=== PATIENT | male | born 1990 | race American Indian/Alaskan Native ===

== ENCOUNTER 2019-06-17 16:42 | Emergency (ER) | payer SELFPAY ==
[2019-06-17] MEDS ORDERED: Sodium Chloride 0.9% 10 ML Syringe FLUSH PRN (17:00)
[2019-06-17] MEDS ORDERED: MVI, Adult with Vitamin K 10 ML, Thiamine 100 MG, Folic Acid 1 MG in Lactated Ringers 1... IV ONE ×4 (17:01)
[2019-06-17] MEDS ORDERED: Ondansetron 4 MG/2 ML SDV IV ONE (17:01)
[2019-06-17] MEDS ORDERED: Pantoprazole 40 MG Vial IVPUSH ONE (17:02)
[2019-06-17 17:14] VITALS: BP 188/101
[2019-06-17 17:33] LABS: ANION GAP 13.1; CHLORIDE,CL 100 mmol/L (101-111); SODIUM,NA 136 mmol/L (135-145)
[2019-06-17] MEDS ORDERED: Azithromycin 250 MG Tab PO ONE (17:46)
[2019-06-17] MEDS ORDERED: Phenazopyridine 95 MG Tab PO ONE (17:47)
--- NOTE | 2019-06-17 17:58 | EDM.PDOC ---
Scribed by Charline Mg 06/17/19 7613 for Laurel Hughes MD ED HPI GENERAL MEDICAL PROBLEM - General Chief Complaint: Genitourinary Problem Stated Complaint: URINATING BLOOD PER PT Time Seen by Provider: 06/17/19 16:53 Source of Information: Reports: Patient, RN, RN Notes Reviewed History Limitations: Reports: No Limitations - History of Present Illness INITIAL COMMENTS - FREE TEXT/NARRATIVE: Patient presents to ER with complaint of "peeing blood" that started this morning. He drank some water and it went away, but then returned. He has dysuria. He did take Ibuprofen this afternoon. Patient admits that he is a heavy drinker and drinks daily. He also admitted to meth and marijuana use. He has been nausea and vomiting for the past 1 or 2 days. He had a couple flecks o blood in his vomitus at least one time. He feels a little shaky. He feels dehydrated and very dry in the mouth. Onset: Gradual Duration: Getting Worse Location: Reports: Generalized Quality: Reports: Ache Severity: Moderate Improves with: Reports: None Worsens with: Reports: None Associated Symptoms: Reports: No Other Symptoms Penis Pain Score (Numeric/FACES): 7 - Related Data Allergies Allergy/AdvReac Type Severity Reaction Status Date / Time No Known Allergies Allergy Verified 06/17/19 16:54 Past Medical History Psychiatric History: Reports: Addiction Social & Family History - Family History Family Medical History: Noncontributory - Living Situation & Occupation Living situation: Reports: with Family Occupation: Unemployed ED ROS GENERAL - Review of Systems Review Of Systems: ROS reveals no pertinent complaints other than HPI. ED EXAM, RENAL/ - Physical Exam Exam: See Below Exam Limited By: No Limitations General Appearance: Alert, WD/WN, No Apparent Distress, Obese Ears: Normal External Exam Nose: Normal Inspection, Normal Mucosa, No Blood Throat/Mouth: Normal Lips, Normal Oropharynx, Normal Voice, No Airway Compromise , Other (Dry oral mucus membranes) Head: Atraumatic, Normocephalic Neck: Normal Inspection, Supple, Non-Tender, Full Range of Motion Respiratory/Chest: No Respiratory Distress, Lungs Clear, Normal Breath Sounds, No Accessory Muscle Use, Chest Non-Tender Cardiovascular: Normal Peripheral Pulses, Regular Rate, Rhythm, No Edema, No Gallop, No JVD, No Murmur, No Rub GI/Abdominal: Normal Bowel Sounds, Soft, No Distention, Tender (mild tenderness at RUQ and epigastric region). No: Guarding, Rigid, Rebound (Male) Exam: Deferred Rectal (Males) Exam: Deferred Back Exam: Normal Inspection Extremities: Normal Inspection, Normal Range of Motion, Non-Tender, Normal Capillary Refill, No Pedal Edema Neurological: Alert, Oriented, CN II-XII Intact, Normal Cognition, Normal Gait, No Motor/Sensory Deficits Psychiatric: Normal Affect, Normal Mood Skin Exam: Warm, Dry, Intact, Normal Color, No Rash Course - Vital Signs Last Recorded V/S: Last Vital Signs Temp 98.3 F 06/17/19 16:56 Pulse 78 06/17/19 16:56 Resp 18 06/17/19 16:56 BP 188/101 H 06/17/19 16:56 Pulse Ox 97 06/17/19 16:56 - Orders/Labs/Meds Orders: Active Orders 24 hr Category Date Time Status Peripheral IV Care [RC] . DIRECTED Care 06/17/19 17:01 Active Abdomen Pelvis wo Cont [CT] Urgent Exams 06/17/19 17:15 Taken CHLAMYDIA AND GONORRHEA BY [facility] Routine Lab 06/17/19 16:46 Received MVI, Adult with Vitamin K [Infuvite Adult] 10 ml Med 06/17/19 17:01 Active Thiamine [Vitamin B-1] 100 mg Folic Acid 1 mg Lactated Ringers [Ringers, Lactated] 1,000 ml IV .BOLUS Sodium Chloride 0.9% [Saline Flush] Med 06/17/19 17:00 Active 10 ml FLUSH ASDIRECTED PRN cefTRIAXone [Rocephin] 2,000 mg Med 06/17/19 17:45 Ordered Sodium Chloride 0.9% [Normal Saline] 100 ml IV ONETIME Peripheral IV Insertion Adult [OM.PC] Stat Oth 06/17/19 17:00 Ordered Medication Orders Multivitamins/Minerals 10 ml/Thiamine HCl 100 mg/ Folic Acid 1 mg/ Lactated Ringer's 1,011.2 mls @ 999 mls/hr IV .BOLUS ONE Stop: 06/17/19 18:01 Last Admin: 06/17/19 17:19 Dose: 999 mls/hr Ceftriaxone Sodium 2,000 mg/ (Sodium Chloride) 100 mls @ 200 mls/hr IV ONETIME ONE Stop: 06/17/19 18:14 Sodium Chloride (Saline Flush) 10 ml FLUSH ASDIRECTED PRN PRN Reason: Keep Vein Open Last Admin: 06/17/19 17:07 Dose: 10 ml Labs: Laboratory Tests 06/17/19 06/17/19 06/17/19 Range/Units 16:46 16:46 17:05 WBC 9.4 (5.0-10.0) 10^3/uL RBC 5.70 (4.6-6.2) 10^6/uL Hgb 16.8 (14.0-18.0) g/dL Hct 49.1 (40.0-54.0) % MCV 86.1 (80-100) fL MCH 29.5 (27.0-34.0) pg MCHC 34.2 (33.0-35.0) g/dL Plt Count 213 (150-450) 10^3/uL Neut % (Auto) 72.3 (42.2-75.2) % Lymph % (Auto) 16.2 L (20.5-50.1) % Nance % (Auto) 10.2 H (2-8) % Eos % (Auto) 1.0 (1.0-3.0) % Baso % (Auto) 0.3 (0.0-1.0) % Sodium (135-145) mmol/L Potassium (3.6-5.0) mmol/L Chloride (101-111) mmol/L Carbon Dioxide (21.0-31.0) mmol/L Anion Gap BUN (7-18) mg/dL Creatinine (0.6-1.3) mg/dL Est Cr Clr Drug Dosing mL/min Estimated GFR (MDRD) BUN/Creatinine Ratio Glucose (74-105) mg/dL Calcium (8.4-10.2) mg/dl Total Bilirubin (0.2-1.0) mg/dL AST (10-42) IU/L ALT (10-60) IU/L Alkaline Phosphatase (42-121) IU/L Total Protein (6.7-8.2) g/dl Albumin (3.2-5.5) g/dl Globulin Albumin/Globulin Ratio Amylase (28-100) U/L Lipase (22-51) U/L Urine Color Red (YELLOW) Urine Appearance Cloudy (CLEAR) Urine pH 6.0 (5.0-9.0) Ur Specific Hammond 1.020 (1.005-1.030) Urine Protein 30 H (NEGATIVE) Urine Glucose (UA) Negative (NEGATIVE) Urine Ketones Negative (NEGATIVE) Urine Occult Blood Large H (NEGATIVE) Urine Nitrite Negative (NEGATIVE) Urine Bilirubin Negative (NEGATIVE) Urine Urobilinogen 0.2 (0.2-1.0) mg/dL Ur Leukocyte Esterase Negative (NEGATIVE) Urine RBC >100 H /HPF Urine WBC 0-5 (0-5/HPF) /HPF Ur Epithelial Cells Occasional (NOT SEEN) /HPF Urine Bacteria Occasional (0-FEW/HPF) /HPF Urine Mucus Occasional (NOT SEEN) /LPF Urine Opiates Screen Negative (NEGATIVE) Ur Oxycodone Screen Negative (NEGATIVE) Urine Methadone Screen Negative (NEGATIVE) Ur Barbiturates Screen Negative (NEGATIVE) U Tricyclic Antidepress Negative (NEGATIVE) Ur Phencyclidine Scrn Negative (NEGATIVE) Ur Amphetamine Screen Positive H (NEGATIVE) U Methamphetamines Scrn Positive H (NEGATIVE) Urine MDMA Screen Negative (NEGATIVE) U Benzodiazepines Scrn Negative (NEGATIVE) Urine Cocaine Screen Negative (NEGATIVE) U Marijuana (THC) Screen Positive H (NEGATIVE) Ethyl Alcohol mg/dL 06/17/19 Range/Units 17:05 WBC (5.0-10.0) 10^3/uL RBC (4.6-6.2) 10^6/uL Hgb (14.0-18.0) g/dL Hct (40.0-54.0) % MCV (80-100) fL MCH (27.0-34.0) pg MCHC (33.0-35.0) g/dL Plt Count (150-450) 10^3/uL Neut % (Auto) (42.2-75.2) % Lymph % (Auto) (20.5-50.1) % Nance % (Auto) (2-8) % Eos % (Auto) (1.0-3.0) % Baso % (Auto) (0.0-1.0) % Sodium 136 (135-145) mmol/L Potassium 4.1 (3.6-5.0) mmol/L Chloride 100 L (101-111) mmol/L Carbon Dioxide 27.0 (21.0-31.0) mmol/L Anion Gap 13.1 BUN 15 (7-18) mg/dL Creatinine 0.9 (0.6-1.3) mg/dL Est Cr Clr Drug Dosing 123.92 mL/min Estimated GFR (MDRD) > 60 BUN/Creatinine Ratio 16.66 Glucose 110 H (74-105) mg/dL Calcium 9.0 (8.4-10.2) mg/dl Total Bilirubin 1.5 H (0.2-1.0) mg/dL AST 44 H (10-42) IU/L ALT 73 H (10-60) IU/L Alkaline Phosphatase 54 (42-121) IU/L Total Protein 8.1 (6.7-8.2) g/dl Albumin 4.7 (3.2-5.5) g/dl Globulin 3.4 Albumin/Globulin Ratio 1.38 Amylase 20 L (28-100) U/L Lipase 25 (22-51) U/L Urine Color (YELLOW) Urine Appearance (CLEAR) Urine pH (5.0-9.0) Ur Specific Hammond (1.005-1.030) Urine Protein (NEGATIVE) Urine Glucose (UA) (NEGATIVE) Urine Ketones (NEGATIVE) Urine Occult Blood (NEGATIVE) Urine Nitrite (NEGATIVE) Urine Bilirubin (NEGATIVE) Urine Urobilinogen (0.2-1.0) mg/dL Ur Leukocyte Esterase (NEGATIVE) Urine RBC /HPF Urine WBC (0-5/HPF) /HPF Ur Epithelial Cells (NOT SEEN) /HPF Urine Bacteria (0-FEW/HPF) /HPF Urine Mucus (NOT SEEN) /LPF Urine Opiates Screen (NEGATIVE) Ur Oxycodone Screen (NEGATIVE) Urine Methadone Screen (NEGATIVE) Ur Barbiturates Screen (NEGATIVE) U Tricyclic Antidepress (NEGATIVE) Ur Phencyclidine Scrn (NEGATIVE) Ur Amphetamine Screen (NEGATIVE) U Methamphetamines Scrn (NEGATIVE) Urine MDMA Screen (NEGATIVE) U Benzodiazepines Scrn (NEGATIVE) Urine Cocaine Screen (NEGATIVE) U Marijuana (THC) Screen (NEGATIVE) Ethyl Alcohol 5 mg/dL Meds: Medications Generic Name Dose Route Start Last Admin Trade Name Freq PRN Reason Stop Dose Admin Multivitamins/Minerals 10 ml/ 1,011.2 mls @ 999 mls/hr 06/17/19 17:01 17:19 Thiamine HCl 100 mg/ Folic IV 06/17/19 18:01 999 mls/hr Acid 1 mg/ Lactated Ringer's .BOLUS ONE Administration Ceftriaxone Sodium 2,000 mg/ 100 mls @ 200 mls/hr 06/17/19 17:45 Sodium Chloride IV 06/17/19 18:14 ONETIME ONE Sodium Chloride 10 ml 06/17/19 17:00 06/17/19 17:07 Saline Flush FLUSH 10 ml ASDIRECTED PRN Administration Keep Vein Open Discontinued Medications Generic Name Dose Route Start Last Admin Trade Name Freq PRN Reason Stop Dose Admin Azithromycin 1,000 mg 06/17/19 17:46 Zithromax PO 06/17/19 17:47 ONETIME ONE Ondansetron HCl 4 mg 06/17/19 17:01 06/17/19 17:19 Zofran IV 06/17/19 17:02 4 mg ONETIME ONE Administration Pantoprazole Sodium 40 mg 06/17/19 17:02 06/17/19 17:19 Protonix Iv IVPUSH 06/17/19 17:03 40 mg ONETIME ONE Administration Phenazopyridine HCl 190 mg 06/17/19 17:47 Urinary Pain Relief PO 06/17/19 17:48 ONETIME ONE - Radiology Interpretation Free Text/Narrative:: [facility] Final Radiology Report Call: [phone] assistance Online chat: [email or web address] Name: CATHY KLINE Age: 29Years M Date: 06/17/2019 SSN: -- : [id number] Study: CT ABDOMEN/PELVIS WO Requesting Physician: LAUREL HUGHES Images: [id number] Addl Studies: Provided Clinical History: Contrast: Without Contrast Medium: Contrast Amount: Contrast Method: Page 1 of 2 EXAM: CT Abdomen and Pelvis Without Contrast EXAM DATE/TIME: 06/17/2019 5:29 PM CLINICAL HISTORY: 29 years old, male; Abdominal pain; Other: Hematuria, right abdomen/flank pain; Prior surgery; Surgery date: 6+ months; Surgery type: Cholecystectomy TECHNIQUE: Imaging protocol: Computed tomography of the abdomen and pelvis without contrast. Radiation optimization: All CT scans at this facility use at least one of these dose optimization techniques: automated exposure control; mA and/or kV adjustment per patient size (includes targeted exams where dose is matched to clinical indication); or iterative reconstruction. COMPARISON: No relevant prior studies available. FINDINGS: Liver: Normal. No mass. Gallbladder and bile ducts: Gallbladder is surgically absent. Pancreas: Normal. No ductal dilation. Spleen: Normal. No splenomegaly. Adrenals: Normal. No mass. Kidneys and ureters: Normal. No hydronephrosis. Stomach and bowel: Unremarkable. No obstruction. No mucosal thickening. Appendix: No evidence of appendicitis. Intraperitoneal space: Normal. No free air. No significant fluid collection. Vasculature: Unremarkable. No abdominal aortic aneurysm. CATHY KLINE | Final Radiology Report CONFIDENTIALITY STATEMENT This report is intended only for use by the referring physician, and only in accordance with law. If you received this in error, call [phone]. Page 2 of 2 Lymph nodes: Unremarkable. No enlarged lymph nodes. Bladder: Unremarkable as visualized. Reproductive: Unremarkable as visualized. Bones/joints: Unremarkable. No acute fracture. Soft tissues: Linear calcification in the center of the penis measuring 10 x 2 mm. IMPRESSION: 1. No nephrolithiasis. 2. Nonspecific calcification base of penis. Calcification in the penile urethra not excluded. Thank you for allowing us to participate in the care of your patient. Dictated and Authenticated by: Juaquin Chawla MD 06/17/2019 5:49 PM Central Time ([place] & [place]) Departure - Departure Time of Disposition: 19:00 Disposition: Home, Self-Care 01 Condition: Good Clinical Impression: Hematuria syndrome, Urethral calculus, Methamphetamine abuse, Alcohol abuse - Discharge Information *PRESCRIPTION DRUG MONITORING PROGRAM REVIEWED*: Not Applicable *COPY OF PRESCRIPTION DRUG MONITORING REPORT IN PATIENT THUY: Not Applicable Instructions: Hematuria, Adult, Stimulant Use Disorder-Methamphetamines, Alcohol Use Disorder Forms: ED Department Discharge Additional Instructions: Rx: Cipro 500mg Rx: Pyridium 200mg Drink plenty of water. Do not drink alcohol and stop using meth. Follow up at your primary clinic this week for urine recheck. - My Orders Last 24 Hours: My Active Orders 06/17/19 16:46 CHLAMYDIA AND GONORRHEA BY [facility] Routine 06/17/19 17:00 Sodium Chloride 0.9% [Saline Flush] 10 ml FLUSH ASDIRECTED PRN Peripheral IV Insertion Adult [OM.PC] Stat 06/17/19 17:01 Peripheral IV Care [RC] . DIRECTED MVI, Adult with Vitamin K [Infuvite Adult] 10 ml Thiamine [Vitamin B-1] 100 mg Folic Acid 1 mg Lactated Ringers [Ringers, Lactated] 1,000 ml IV .BOLUS 06/17/19 17:15 Abdomen Pelvis wo Cont [CT] Urgent 06/17/19 17:45 cefTRIAXone [Rocephin] 2,000 mg Sodium Chloride 0.9% [Normal Saline] 100 ml IV ONETIME - Assessment/Plan Last 24 Hours: My Active Orders 06/17/19 16:46 CHLAMYDIA AND GONORRHEA BY TMA Routine 06/17/19 17:00 Sodium Chloride 0.9% [Saline Flush] 10 ml FLUSH ASDIRECTED PRN Peripheral IV Insertion Adult [OM.PC] Stat 06/17/19 17:01 Peripheral IV Care [RC] . DIRECTED MVI, Adult with Vitamin K [Infuvite Adult] 10 ml Thiamine [Vitamin B-1] 100 mg Folic Acid 1 mg Lactated Ringers [Ringers, Lactated] 1,000 ml IV .BOLUS 06/17/19 17:15 Abdomen Pelvis wo Cont [CT] Urgent 06/17/19 17:45 cefTRIAXone [Rocephin] 2,000 mg Sodium Chloride 0.9% [Normal Saline] 100 ml IV ONETIME I have read and agree with the documentation that has been completed regarding this visit. By signing this record, I attest that the documentation was completed in my physical presence and is an accurate record of the encounter.
== END 2019-06-17 18:32 | disposition home or self-care (01) ==
LOC: DL.ED 16:42
DX: N21.1 Calculus in urethra (principal); F15.10 Other stimulant abuse, uncomplicated; F10.10 Alcohol abuse, uncomplicated; Y90.0 Blood alcohol level of less than 20 mg/100 ml
CPT/HCPCS: 36415; 74176; 80053; 80305; 81001; 82150; 83690; 85025; 87491; 87591; 96365; 96368; 96375; 99285; A9270; C9113; G0480; J0696; J2405; J3411; J7050; J7120; J3490

== ENCOUNTER 2021-03-17 01:12 | Emergency (ER) | payer MEDICAID, OTHER ==
[2021-03-17 01:57] LABS: ANION GAP 13.9 mEq/L (7-13); CHLORIDE,CL 102 mmol/L (98-107); SODIUM,NA 140 mmol/L (136-145)
[2021-03-17] MEDS ORDERED: Iopamidol 612 MG/ML 100 ML Bottle IVPUSH ONE (03:16)
[2021-03-17] MEDS ORDERED: Famotidine 20 MG/2 ML SDV IVPUSH ONE (03:25)
[2021-03-17] MEDS ORDERED: Famotidine 20 MG/2 ML SDV ONE (03:46)
--- NOTE | 2021-03-17 04:17 | CT ---
PROCEDURE INFORMATION: Exam: CT Abdomen And Pelvis With Contrast Exam date and time: 03/17/2021 2:53 AM Age: 30 years old Clinical indication: Abdominal pain; Periumbilical; Prior surgery; Surgery date: 6+ months; Surgery type: Gallbladder removed in 2013 TECHNIQUE: Imaging protocol: Computed tomography of the abdomen and pelvis with contrast. Radiation optimization: All CT scans at this facility use at least one of these dose optimization techniques: automated exposure control; mA and/or kV adjustment per patient size (includes targeted exams where dose is matched to clinical indication); or iterative reconstruction. Contrast material: ISOVUE 300; Contrast volume: 100 ml; Contrast route: INTRAVENOUS (IV); COMPARISON: CT Abdomen Pelvis wo Cont 06/17/2019 5:29 PM FINDINGS: Lungs: The lung bases are clear. No effusion Liver: There is fatty infiltration of the liver. Gallbladder and bile ducts: There has been a cholecystectomy. Pancreas: Normal. No ductal dilation. Spleen: Normal. No splenomegaly. Adrenal glands: Normal. No mass. Kidneys and ureters: There is a subcentimeter low-attenuation lesions/lesions, of the left kidney which are too small to accurately characterize by CT. Stomach and bowel: Diverticulosis without diverticulitis. Appendix: No evidence of appendicitis. Intraperitoneal space: Unremarkable. No free air. No significant fluid collection. Vasculature: Unremarkable. No abdominal aortic aneurysm. Lymph nodes: Unremarkable. No enlarged lymph nodes. Urinary bladder: There is urinary bladder wall thickening with pericystic fat stranding. Reproductive: Unremarkable as visualized. Bones/joints: Unremarkable. No acute fracture. Soft tissues: Unremarkable. IMPRESSION: 1. Findings concerning for acute cystitis. 2. Fatty infiltration of the liver. 3. Diverticulosis without diverticulitis. COMMENTS: Consistent with the [employer]'s Incidental Findings Committee white paper (J Am Quyen Radiol 2018): Any incidental renal lesion less than 1 cm or classified as too small to characterize, or any incidental cystic renal lesion characterized as simple-appearing, is likely benign. No follow-up imaging is recommended for these lesions per consensus recommendations based on imaging criteria.
--- NOTE | 2021-03-17 04:20 | EDM.PDOC ---
ED HPI GENERAL MEDICAL PROBLEM - General Chief Complaint: Abdominal Pain Stated Complaint: STOMACH CHEST PAINS Time Seen by Provider: 03/17/21 01:40 Source of Information: Reports: Patient, RN History Limitations: Reports: No Limitations - History of Present Illness INITIAL COMMENTS - FREE TEXT/NARRATIVE: ED with c/o upper abdominal pain since 9pm . Vomited x 1. Pizza for supper. Normal BM this padmini. No fever. Reports pain similar to gallbladder problems. Admits ETOH 2-3 times per week. Cannibas, denied other drug use. Middle Abdomen Pain Score (Numeric/FACES): 8 - Related Data Allergies Allergy/AdvReac Type Severity Reaction Status Date / Time No Known Allergies Allergy Verified 03/17/21 01:35 Home Meds: Home Meds . [No Known Home Meds] 03/17/21 [History] Past Medical History - Past Health History Medical/Surgical History: Denies Medical/Surgical History Psychiatric History: Reports: Addiction - Past Surgical History GI Surgical History: Reports: Cholecystectomy Social & Family History - Family History Family Medical History: No Pertinent Family History - Tobacco Use Tobacco Use Status *Q: Never Tobacco User - Caffeine Use Caffeine Use: Reports: Tea - Recreational Drug Use Recreational Drug Use: Yes Recreational Drug Type: Reports: Marijuana/Hashish - Living Situation & Occupation Living situation: Reports: with Family Occupation: Unemployed ED ROS GENERAL - Review of Systems Review Of Systems: Comprehensive ROS is negative, except as noted in HPI. ED EXAM, GI/ABD - Physical Exam Exam: See Below Exam Limited By: No Limitations General Appearance: Alert, Mild Distress Eyes: Bilateral: EOMI Head: Atraumatic, Normocephalic Neck: Normal Inspection Respiratory/Chest: No Respiratory Distress, Lungs Clear, Normal Breath Sounds Cardiovascular: Normal Peripheral Pulses, Regular Rate, Rhythm GI/Abdominal Exam: Normal Bowel Sounds, Soft, Tender (epigastric, LUQ). No: Distended, Guarding, Rigid, Rebound Back Exam: Full Range of Motion Extremities: Normal Inspection Neurological: Alert, Oriented, Normal Cognition Skin Exam: Warm, Dry, Intact, Normal Color Course - Vital Signs Last Recorded V/S: Last Vital Signs Temp 97.7 F 03/17/21 01:31 Pulse 70 03/17/21 02:17 Resp 18 03/17/21 02:17 BP 153/80 H 06/02/21 02:17 Pulse Ox 100 03/17/21 02:17 - Orders/Labs/Meds Orders: Active Orders 24 hr Category Date Time Status EKG 12 Lead [EKG Documentation Completion] [RC] URGENT Care 03/17/21 01:13 Active Abdomen Pelvis w Cont [CT] Urgent Exams 03/17/21 02:07 Taken CULTURE URINE [RM] Stat Lab 03/17/21 01:50 Received Labs: Laboratory Tests 03/17/21 03/17/21 03/17/21 Range/Units 01:30 01:30 01:30 WBC 8.2 (5.0-10.0) 10^3/uL RBC 5.50 (4.6-6.2) 10^6/uL Hgb 16.6 (14.0-18.0) g/dL Hct 49.4 (40.0-54.0) % MCV 89.8 D (80-100) fL MCH 30.2 (27.0-34.0) pg MCHC 33.6 (33.0-35.0) g/dL Plt Count 207 (150-450) 10^3/uL Neut % (Auto) 62.7 (42.2-75.2) % Lymph % (Auto) 20.5 (20.5-50.1) % [place] % (Auto) 13.1 H (2-8) % Eos % (Auto) 3.2 H (1.0-3.0) % Baso % (Auto) 0.5 (0.0-1.0) % PT 10.3 (9.0-12.0) SEC INR 1.0 (0.9-1.2) Sodium 140 (136-145) mmol/L Potassium 3.9 (3.5-5.1) mmol/L Chloride 102 (98-107) mmol/L Carbon Dioxide 28 (21-32) mmol/L Anion Gap 13.9 H (7-13) mEq/L BUN 6 L (7-18) mg/dL Creatinine 0.89 (0.70-1.30) mg/dL Est Cr Clr Drug Dosing 124.17 mL/min Estimated GFR (MDRD) > 60 BUN/Creatinine Ratio 6.7 (No establ ref range) Glucose 118 H (70-99) mg/dL Calcium 8.8 (8.5-10.1) mg/dL Total Bilirubin 0.6 (0.2-1.0) mg/dL AST 39 H (15-37) U/L ALT 71 H (16-63) U/L Alkaline Phosphatase 119 H (46-116) U/L Total Protein 8.0 (6.4-8.2) g/dL Albumin 3.7 (3.4-5.0) g/dL Globulin 4.3 Albumin/Globulin Ratio 0.9 Amylase (25-115) U/L Lipase (73-393) U/L Urine Color (YELLOW) Urine Appearance (CLEAR) Urine pH (5.0-9.0) Ur Specific Geraldine (1.005-1.030) Urine Protein (NEGATIVE) Urine Glucose (UA) (NEGATIVE) Urine Ketones (NEGATIVE) Urine Occult Blood (NEGATIVE) Urine Nitrite (NEGATIVE) Urine Bilirubin (NEGATIVE) Urine Urobilinogen (0.2-1.0) mg/dL Ur Leukocyte Esterase (NEGATIVE) Urine RBC /HPF Urine WBC (0-5/HPF) /HPF Ur Epithelial Cells (NOT SEEN) /HPF Amorphous Sediment (NOT SEEN) /HPF Urine Bacteria (0-FEW/HPF) /HPF Urine Opiates Screen (NEGATIVE) Ur Oxycodone Screen (NEGATIVE) Urine Methadone Screen (NEGATIVE) Ur Barbiturates Screen (NEGATIVE) U Tricyclic Antidepress (NEGATIVE) Ur Phencyclidine Scrn (NEGATIVE) Ur Amphetamine Screen (NEGATIVE) U Methamphetamines Scrn (NEGATIVE) Urine MDMA Screen (NEGATIVE) U Benzodiazepines Scrn (NEGATIVE) Urine Cocaine Screen (NEGATIVE) U Marijuana (THC) Screen (NEGATIVE) Ethyl Alcohol < 3 (0) mg/dL 03/17/21 03/17/21 03/17/21 Range/Units 01:30 01:50 01:50 WBC (5.0-10.0) 10^3/uL RBC (4.6-6.2) 10^6/uL Hgb (14.0-18.0) g/dL Hct (40.0-54.0) % MCV (80-100) fL MCH (27.0-34.0) pg MCHC (33.0-35.0) g/dL Plt Count (150-450) 10^3/uL Neut % (Auto) (42.2-75.2) % Lymph % (Auto) (20.5-50.1) % [place] % (Auto) (2-8) % Eos % (Auto) (1.0-3.0) % Baso % (Auto) (0.0-1.0) % PT (9.0-12.0) SEC INR (0.9-1.2) Sodium (136-145) mmol/L Potassium (3.5-5.1) mmol/L Chloride (98-107) mmol/L Carbon Dioxide (21-32) mmol/L Anion Gap (7-13) mEq/L BUN (7-18) mg/dL Creatinine (0.70-1.30) mg/dL Est Cr Clr Drug Dosing mL/min Estimated GFR (MDRD) BUN/Creatinine Ratio (No establ ref range) Glucose (70-99) mg/dL Calcium (8.5-10.1) mg/dL Total Bilirubin (0.2-1.0) mg/dL AST (15-37) U/L ALT (16-63) U/L Alkaline Phosphatase (46-116) U/L Total Protein (6.4-8.2) g/dL Albumin (3.4-5.0) g/dL Globulin Albumin/Globulin Ratio Amylase 23 L (25-115) U/L Lipase 77 (73-393) U/L Urine Color Yellow (YELLOW) Urine Appearance Slightly cloudy (CLEAR) Urine pH 8.0 (5.0-9.0) Ur Specific Geraldine 1.020 (1.005-1.030) Urine Protein Negative (NEGATIVE) Urine Glucose (UA) Negative (NEGATIVE) Urine Ketones Negative (NEGATIVE) Urine Occult Blood Negative (NEGATIVE) Urine Nitrite Negative (NEGATIVE) Urine Bilirubin Negative (NEGATIVE) Urine Urobilinogen 1.0 (0.2-1.0) mg/dL Ur Leukocyte Esterase Trace H (NEGATIVE) Urine RBC Not seen /HPF Urine WBC 20-30 H (0-5/HPF) /HPF Ur Epithelial Cells Moderate H (NOT SEEN) /HPF Amorphous Sediment Many (NOT SEEN) /HPF Urine Bacteria Moderate H (0-FEW/HPF) /HPF Urine Opiates Screen Negative (NEGATIVE) Ur Oxycodone Screen Negative (NEGATIVE) Urine Methadone Screen Negative (NEGATIVE) Ur Barbiturates Screen Negative (NEGATIVE) U Tricyclic Antidepress Negative (NEGATIVE) Ur Phencyclidine Scrn Negative (NEGATIVE) Ur Amphetamine Screen Negative (NEGATIVE) U Methamphetamines Scrn Positive H (NEGATIVE) Urine MDMA Screen Negative (NEGATIVE) U Benzodiazepines Scrn Negative (NEGATIVE) Urine Cocaine Screen Negative (NEGATIVE) U Marijuana (THC) Screen Positive H (NEGATIVE) Ethyl Alcohol (0) mg/dL Meds: Medications Discontinued Medications Generic Name Dose Route Start Last Admin Trade Name Nadeemq PRN Reason Stop Dose Admin Famotidine 20 mg 03/17/21 03:25 03/17/21 03:52 Famotidine 20 Mg/2 Ml Sdv IVPUSH 03/17/21 03:26 20 mg ONETIME ONE Administration Famotidine Confirm 03/17/21 03:46 03/17/21 03:56 Famotidine 20 Mg/2 Ml Sdv Administered 03/17/21 03:47 Not Given Dose 20 mg .ROUTE .STK-MED ONE Iopamidol 100 ml 03/17/21 03:16 03/17/21 03:09 Iopamidol 612 Mg/Ml 100 Ml Bottle IVPUSH 03/17/21 03:17 100 ml ONETIME ONE Administration Departure - Departure Time of Disposition: 04:19 Disposition: Home, Self-Care 01 Condition: Good Clinical Impression: Positive urine drug screen, Alcohol abuse, Cystitis Abdominal pain Qualifiers: Abdominal location: epigastric Qualified Code(s): R10.13 - Epigastric pain - Discharge Information *PRESCRIPTION DRUG MONITORING PROGRAM REVIEWED*: No *COPY OF PRESCRIPTION DRUG MONITORING REPORT IN PATIENT THUY: No Instructions: Abdominal Pain, Adult, [id number] Additional Instructions: increase fluids decrease alcohol use doxycycline 100mg one twice daily for one week clinic follow up if not improving bland low fat diet Sepsis Event Note (ED) - Evaluation Sepsis Screening Result: No Definite Risk - Focused Exam Vital Signs: Vital Signs Temp Pulse Resp BP Pulse Ox 03/17/21 02:17 70 18 153/80 H 100 03/17/21 01:31 97.7 F 68 16 180/116 H 99 - My Orders Last 24 Hours: My Active Orders 03/17/21 01:13 EKG 12 Lead [EKG Documentation Completion] [RC] URGENT 03/17/21 01:50 CULTURE URINE [RM] Stat 03/17/21 02:07 Abdomen Pelvis w Cont [CT] Urgent - Assessment/Plan Last 24 Hours: My Active Orders 03/17/21 01:13 EKG 12 Lead [EKG Documentation Completion] [RC] URGENT 03/17/21 01:50 CULTURE URINE [RM] Stat 03/17/21 02:07 Abdomen Pelvis w Cont [CT] Urgent
[2021-03-17] MEDS ORDERED: Doxycycline Monohydrate 100 MG Cap PO ONE (04:27)
[2021-03-17] MEDS ORDERED: Azithromycin 250 MG Tab PO ONE (04:27)
[2021-03-17 04:37] VITALS: BP 147/82; PULSE 65
[2021-03-18 17:42] LABS: C.TRACHOMATIS BY TMA Negative (Negative); N.GONORRHOEAE BY TMA Negative (Negative)
== END 2021-03-17 04:48 | disposition home or self-care (01) ==
LOC: DL.ED 01:12
DX: N30.90 Cystitis, unspecified without hematuria (principal); F10.10 Alcohol abuse, uncomplicated; R82.5 Elevated urine levels of drugs, medicaments and biological substances; Z90.49 Acquired absence of other specified parts of digestive tract
CPT/HCPCS: 36415; 74177; 80053; 80305; 80307; 81001; 82150; 83690; 85025; 85610; 87086; 87491; 87591; 93005; 96374; 99284; A9270; J3490; Q9967

== ENCOUNTER 2022-12-27 19:15 | Emergency (ER) | payer MEDICAID ==
[2022-12-27] MEDS ORDERED: Sodium Chloride 0.9% 10 ML Syringe FLUSH PRN (19:55)
[2022-12-27 20:29] LABS: AMPHETAMINES,URINE NEGATIVE (NEGATIVE); BARBITURATES,URINE NEGATIVE (NEGATIVE); BENZODIAZEPINE,URINE NEGATIVE (NEGATIVE); MDMA (ECSTASY), URINE NEGATIVE (NEGATIVE); METHADONE,URINE NEGATIVE (NEGATIVE); METHAMPHETAMINES,URINE NEGATIVE (NEGATIVE); OPIATES,URINE NEGATIVE (NEGATIVE); OXYCODONE,URINE NEGATIVE (NEGATIVE); PHENCYCLIDINE,URINE NEGATIVE (NEGATIVE); TCA,URINE NEGATIVE (NEGATIVE)
[2022-12-27 20:30] LABS: PTT,PARTIAL THROMBOPLSTIN TIME 25.5 SEC (22.0-34.0)
[2022-12-27] MEDS ORDERED: Ondansetron 4 MG/2 ML SDV IVPUSH ONE (20:30)
[2022-12-27] MEDS ORDERED: Sodium Chloride 0.9% 1,000 ML IV ONE (20:30)
[2022-12-27 20:33] LABS: ANION GAP 12.7 mEq/L (7-13); CHLORIDE,CL 100 mmol/L (98-107); SODIUM,NA 136 mmol/L (136-145)
[2022-12-27 20:36] LABS: ESTIMATED GFR 122 mL/min (>=60)
[2022-12-27 20:39] VITALS: BP 160/120; PULSE 92
[2022-12-27] MEDS ORDERED: Iopamidol 612 MG/ML 100 ML Bottle IVPUSH ONE (20:54)
== END 2022-12-27 22:04 | disposition home or self-care (01) ==
LOC: DL.ED 19:15
DX: K76.0 Fatty (change of) liver, not elsewhere classified (principal); R16.0 Hepatomegaly, not elsewhere classified; R59.0 Localized enlarged lymph nodes; F10.10 Alcohol abuse, uncomplicated; F12.90 Cannabis use, unspecified, uncomplicated; N28.1 Cyst of kidney, acquired; Z90.49 Acquired absence of other specified parts of digestive tract
CPT/HCPCS: 36415; 74177; 80053; 80305-QW; 80307; 81001; 82150; 83605; 83690; 83735; 84145; 85025; 85610; 85730; 86140; 87086; 93005; 93010; 96361; 96374; 99284-25; 99285; J2405; J3490; J7030; Q9967

== ENCOUNTER 2023-03-15 00:53 | Emergency (ER) | payer MEDICAID ==
[2023-03-15 01:11] VITALS: PULSE 98
[2023-03-15] MEDS ORDERED: cloNIDine 0.1 MG Tab PO ONE (01:34)
[2023-03-15 01:41] VITALS: BP 176/108
[2023-03-15 01:48] LABS: BASOPHILS PERCENT AUTO 0.5 % (0.0-1.0); EOSINOPHILS PERCENT AUTO 2.2 % (1.0-3.0); HEMATOCRIT 46.4 % (40.0-54.0); HEMOGLOBIN 15.8 g/dL (14.0-18.0); LYMPHOCYTES PERCENT AUTO 35.5 % (20.5-50.1); MEAN CORPUSCULAR HEMOGLOBIN 29.5 pg (27.0-34.0); MEAN CORPUSCULAR HGB CONC 34.1 g/dL (33.0-35.0); MEAN CORPUSCULAR VOLUME 86.7 fL (80-100); MONOCYTES PERCENT AUTO 12.1 % (2-8); NEUTROPHILS PERCENT AUTO 49.7 % (42.2-75.2); PLATELET COUNT,PLT 68 10^3/uL (150-450); RED BLOOD CELL COUNT 5.35 10^6/uL (4.6-6.2); WHITE BLOOD CELL COUNT,WBC 6.3 10^3/uL (5.0-10.0)
[2023-03-15 02:08] LABS: A/G RATIO 0.8; ALANINE AMINOTRANSFERASE,ALT 71 U/L (16-63); ALBUMIN 3.6 g/dL (3.4-5.0); ALKALINE PHOSPHATASE 131 U/L (46-116); ANION GAP 8.4 mEq/L (7-13); ASPARTATE AMNIOTRANSFERASE,AST 136 U/L (15-37); BILIRUBIN TOTAL 1.2 mg/dL (0.2-1.0); BLOOD UREA NITROGEN,BUN 7 mg/dL (7-18); BUN/CREATININE RATIO 7.9 (No establ ref range); CALCIUM 8.6 mg/dL (8.5-10.1); CARBON DIOXIDE,CO2 30 mmol/L (21-32); CHLORIDE,CL 98 mmol/L (98-107); CREATININE 0.89 mg/dL (0.70-1.30); EST CRCL DRUG DOSING (CG) 106.53 mL/min; ESTIMATED GFR 116 mL/min (>=60); GLUCOSE RANDOM 155 mg/dL (70-99); LIPASE 156 U/L (73-393); POTASSIUM,K 3.4 mmol/L (3.5-5.1); PROTEIN TOTAL,TP 8.3 g/dL (6.4-8.2); SODIUM,NA 133 mmol/L (136-145)
== END 2023-03-15 03:19 | disposition home or self-care (01) ==
LOC: DL.ED 00:53
DX: K70.9 Alcoholic liver disease, unspecified (principal); I10 Essential (primary) hypertension; F17.210 Nicotine dependence, cigarettes, uncomplicated; Z90.49 Acquired absence of other specified parts of digestive tract
CPT/HCPCS: 36415; 80053; 83690; 85025; 99284; A9270-GY

== ENCOUNTER 2023-05-11 01:28 | Emergency (ER) | payer MEDICAID ==
[2023-05-11] MEDS ORDERED: Aspirin 81 MG Tab.Chew PO ONE ×2 (02:08→02:33)
[2023-05-11] MEDS ORDERED: Sodium Chloride 0.9% 10 ML Syringe FLUSH PRN (02:08)
[2023-05-11] MEDS ORDERED: Ondansetron 4 MG/2 ML SDV IVPUSH ONE (02:08)
[2023-05-11 02:16] VITALS: PULSE 90
[2023-05-11 02:17] LABS: BASOPHILS PERCENT AUTO 0.3 % (0.0-1.0); EOSINOPHILS PERCENT AUTO 1.2 % (1.0-3.0); HEMATOCRIT 48.4 % (40.0-54.0); HEMOGLOBIN 16.6 g/dL (14.0-18.0); LYMPHOCYTES PERCENT AUTO 32.8 % (20.5-50.1); MEAN CORPUSCULAR HEMOGLOBIN 29.2 pg (27.0-34.0); MEAN CORPUSCULAR HGB CONC 34.3 g/dL (33.0-35.0); MEAN CORPUSCULAR VOLUME 85.2 fL (80-100); MONOCYTES PERCENT AUTO 9.5 % (2-8); NEUTROPHILS PERCENT AUTO 56.2 % (42.2-75.2); PLATELET COUNT,PLT 130 10^3/uL (150-450); RED BLOOD CELL COUNT 5.68 10^6/uL (4.6-6.2); WHITE BLOOD CELL COUNT,WBC 9.7 10^3/uL (5.0-10.0)
[2023-05-11 02:27] LABS: ANION GAP 12.6 mEq/L (7-13); CALCIUM 8.8 mg/dL (8.5-10.1); CREATININE 0.86 mg/dL (0.70-1.30); EST CRCL DRUG DOSING (CG) 110.25 mL/min; POTASSIUM,K 3.6 mmol/L (3.5-5.1)
[2023-05-11] MEDS ORDERED: Clopidogrel 75 MG Tab PO ONE (02:33)
[2023-05-11] MEDS ORDERED: Enoxaparin 100 MG/1 ML Syringe SUBCUT ONE (02:33)
[2023-05-11] MEDS ORDERED: Nitroglycerin 0.4 MG Tab.SL SL ONE ×2 (06:20)
[2023-05-11] MEDS ORDERED: Aluminum Hydroxide/Magnesium Hydroxide/Simethicone Susp 30 ML Cup PO ONE (06:22)
[2023-05-11] MEDS ORDERED: Lidocaine 2% Viscous Solution 15 ML UD PO ONE (06:22)
[2023-05-11 07:02] VITALS: BP 145/83
[2023-05-11] MEDS ORDERED: Famotidine 20 MG/2 ML SDV IVPUSH ONE (07:24)
[2023-05-11 08:23] LABS: AMYLASE 25 U/L (25-115); LIPASE 91 U/L (73-393)
== END 2023-05-11 09:50 | disposition home or self-care (01) ==
LOC: DL.ED 01:28
DX: I21.4 Non-ST elevation (NSTEMI) myocardial infarction (principal); R73.9 Hyperglycemia, unspecified
CPT/HCPCS: 36415; 71046; 80048; 82150; 83690; 84484; 85025; 85379; 93005; 96372; 96374; 96375; 99291; 99292; A9270; J1650; J2405; J3490

== ENCOUNTER 2023-10-22 14:21 | Emergency (ER) | payer SELFPAY ==
[2023-10-22] MEDS ORDERED: Lidocaine 2% Viscous Solution 15 ML UD PO ONE (14:25)
[2023-10-22] MEDS ORDERED: Aluminum Hydroxide/Magnesium Hydroxide/Simethicone Susp 30 ML Cup PO ONE (14:26)
[2023-10-22] MEDS ORDERED: diphenhydrAMINE 12.5 MG/5 ML Liquid 5 ML UD Cup PO SCH (14:30)
[2023-10-22 15:15] VITALS: BP 188/92; PULSE 77
== END 2023-10-22 15:10 | disposition home or self-care (01) ==
LOC: DL.ED 14:21
DX: K21.9 Gastro-esophageal reflux disease without esophagitis (principal); I10 Essential (primary) hypertension
CPT/HCPCS: 99283; 99284; A9270

== ENCOUNTER 2023-11-20 04:29 | Emergency (ER) | payer OTHER ==
[2023-11-20] MEDS: Sodium Chloride 0.9% 10 ML Syringe FLUSH PRN (04:54)
[2023-11-20] MEDS: Acetaminophen 500 MG Tab PO ONE (04:55)
[2023-11-20] MEDS: Ketorolac 30 MG/ML SDV IVPUSH ONE (04:55)
[2023-11-20] MEDS: Sodium Chloride 0.9% 1,000 ML IV ONE ×2 (04:55→05:43)
[2023-11-20 04:57] LABS: HEMATOCRIT 42.9 % (40.0-54.0); MEAN CORPUSCULAR HEMOGLOBIN 28.5 pg (27.0-34.0); MEAN CORPUSCULAR VOLUME 81.4 fL (80-100); PLATELET COUNT,PLT 66 10^3/uL (150-450); RED BLOOD CELL COUNT 5.27 10^6/uL (4.6-6.2); WHITE BLOOD CELL COUNT,WBC 13.9 10^3/uL (5.0-10.0)
[2023-11-20 05:00] LABS: BASOPHILS PERCENT AUTO 0.1 % (0.0-1.0); LYMPHOCYTES PERCENT AUTO 10.3 % (20.5-50.1); MONOCYTES PERCENT AUTO 6.2 % (2-8); NEUTROPHILS PERCENT AUTO 83.4 % (42.2-75.2)
[2023-11-20 05:04] VITALS: BP 134/81; PULSE 124
[2023-11-20 05:09] LABS: ALANINE AMINOTRANSFERASE,ALT 44 U/L (16-63); ALBUMIN 2.7 g/dL (3.4-5.0); ALKALINE PHOSPHATASE 98 U/L (46-116); ANION GAP 14.1 mEq/L (7-13); ASPARTATE AMNIOTRANSFERASE,AST 32 U/L (15-37); BILIRUBIN TOTAL 3.5 mg/dL (0.2-1.0); BLOOD UREA NITROGEN,BUN 12 mg/dL (7-18); BUN/CREATININE RATIO 11.3 (No establ ref range); CALCIUM 7.9 mg/dL (8.5-10.1); CARBON DIOXIDE,CO2 26 mmol/L (21-32); CHLORIDE,CL 92 mmol/L (98-107); CREATININE 1.06 mg/dL (0.70-1.30); EST CRCL DRUG DOSING (CG) 101.39 mL/min; GLUCOSE RANDOM 166 mg/dL (70-99); POTASSIUM,K 3.1 mmol/L (3.5-5.1); PROTEIN TOTAL,TP 7.9 g/dL (6.4-8.2); SODIUM,NA 129 mmol/L (136-145)
[2023-11-20 05:12] LABS: LACTIC ACID 1.9 mmol/L (0.4-2.0)
[2023-11-20 05:14] LABS: LYMPHOCYTES PERCENT MAN 9 % (20-50); MONOCYTES PERCENT MAN 7 % (2-8); SEG NEUTROPHILS PERCENT MAN 84 % (42-75)
[2023-11-20 05:20] LABS: A/G RATIO 0.52; C-REACTIVE PROTEIN > 25.00 ng/dL (<=0.50); ESTIMATED GFR 94 mL/min (>=60)
[2023-11-20] MEDS: cefTRIAXone 2 GM Vial IVPUSH ONE (05:26)
[2023-11-20 05:29] LABS: INFLUENZA A NAA NEGATIVE (NEGATIVE); INFLUENZA B NAA NEGATIVE (NEGATIVE)
[2023-11-20 05:31] LABS: CORONAVIRUS COVID-19 NAA POSITIVE (NEGATIVE)
[2023-11-20] MEDS: Potassium Chloride 10 MEQ Tab.ER PO ONE (05:37)
== END 2023-11-20 06:22 | disposition home or self-care (01) ==
LOC: DL.ED 04:29
DX: J18.9 Pneumonia, unspecified organism (principal)
CPT/HCPCS: 0240U; 36415; 71046; 80053; 83605; 84145; 85025; 86140; 87040; 96361; 96374; 96375; 99284; 99284-25; A9270-GY; J0696; J1885; J3490; J7030